=== PATIENT | male | born 2000 | race Caucasian/White ===

== ENCOUNTER 2023-03-13 08:42 | Emergency (ER) | payer OTHER, SELFPAY ==
[2023-03-13 08:43] VITALS: BP 140/96; PULSE 85; RESP 14; TEMP 36.9; O2SAT 100; BMI 19.6
--- NOTE | 2023-03-13 09:56 | RAD_ITS ---
STUDY: X-RAY - LEFT ANKLE REASON FOR EXAM: Male, 22 years old. Left ankle -- -- INJURY LEFT ANKLE, LATERAL PAIN TECHNIQUE: 3 view(s) of the ankle. COMPARISON: None. FINDINGS: Normal visualized distal tibia and fibula. Normal medial and lateral malleoli. Normal tibiotalar articulation and ankle mortise. Normal visualized talus and calcaneus. The visualized subtalar, talonavicular, calcaneocuboid and tarsal articulations are normal. There is no demonstrated fracture. There is lateral soft tissue swelling. RAD/Ankle min 3 Views IMPRESSION: Soft tissue swelling. No fracture seen. Electronically Signed: Bigg Escamilla MD at 10:25 EDT ,
--- NOTE | 2023-03-13 09:57 | EX.ED.DYSGE1 ---
HPI History of Present Illness Chief Complaint: Lower Extremity Injury Narrative Narrative: Patient is a 22-year-old male who is presenting to the ER today with chief complaint of left ankle pain. Patient states that [place] in [place] 1230 [place] and he stepped on a log that gave away and he twisted his left ankle. Patient has not sprained or fractured his left ankle before. Patient was walking around the rest of the day and evening with pain slowly getting worse. Patient took ibuprofen before bedtime last night. Patient woke up and was have a hard time bearing weight on his left ankle. Patient has no other injury. Patient did not injure his head, no headache, neck pain, no other extremity injury besides left ankle. Patient does have moderate amount of swelling with mild ecchymosis noted to the left lateral ankle. Patient was brought to the ER dropped off by a friend. Patient took nothing for pain this morning. He has not used any ice. No other acute complaints. PFS PFSH Allergy/AdvReac Type Severity Reaction Status Date / Time No Known Allergies Allergy Verified 03/13/23 08:44 ROS ROS ED ROS Narrative REVIEW OF SYSTEMS: Unless otherwise stated in this report the patient's positive and negative responses for review of systems for constitutional, eyes, ENT, cardiovascular, respiratory, gastrointestinal, neurological, , musculoskeletal, and integument systems and related systems to the presenting problem are either stated in the history of present illness or were not pertinent or were negative for the symptoms and/or complaints related to the presenting medical problem. EXAM Physical Exam Narrative Exam Narrative: Vital Signs reviewed and noted to be within normal limits. the patient is not hypoxic. General: Alert, no acute distress, patient resting comfortably Skin: warm, intact, no pallor noted Head: Normocephalic, atraumatic Eye: Normal conjunctiva Respiratory: No acute distress Musculoskeletal: No evidence of deformity to the . There is swelling. There is ecchymosis. No erythema is noted. DP and PT pulses are intact 2+. Normal sensation, normal capillary refill less than 2 seconds. There is no cyanosis or mottling noted. The patient has tenderness to lateral malleolus, moderate with moderate swelling, mild ecchymosis. Patient has mild tenderness to palpation to the left medial malleolus, no edema, swelling, ecchymosis. . No tenderness noted to the 5th MT, midfoot, or proximal fibular area. There is no pain with calcaneal squeeze, achilles tendon is intact and no defect is palpated. Left Achilles tendon is intact. No pain to left proximal fibular head. Neurological: alert and orient x4, normal sensory and motor observed. Psychiatric: Cooperative Const Vital Signs: 03/13/23 08:43 Temperature 98.5 F Temperature Source Temporal Pulse Rate 85 Respiratory Rate 14 Blood Pressure 140/96 H Blood Pressure Mean 110 Pulse Ox 100 Oxygen Delivery Method Room Air MDM MDM MDM Narrative Medical decision making narrative: Patient had ice applied, patient was given Motrin, patient had a left ankle x-ray. There is delay in x-ray secondary to not submitting the order by error initially. Patient's left ankle x-ray shows no acute fracture, dislocation, or acute abnormality. This was reviewed by Dr. Blevins. Procedure note: Patient was placed in Chang wrap, Aircast and crutches to the left ankle/lower extremity. Splint was assisted with Dr. Blevins. The patient was neurovascular intact before and after the splint was placed. The affected bones/injured area had proper alignment in a splint. Education on splint care at home was given at bedside. Patient and family had no questions at disposition. Patient's left ankle x-ray shows no acute fracture, dislocation or acute abnormality. Patient had ice and Motrin done in the ER. Patient will continue with ice, anti-inflammatories, and follow-up with PCP. No questions at discharge. Patient is not involved in any type activities or sports. Patient does take HIV medication, no other blood thinners Radiography Diagnostic Testing: Clinical Impression(s) from Imaging Studies Ankle X-Ray 03/13/23 09:56 IMPRESSION: Soft tissue swelling. No fracture seen. Electronically Signed: Bigg Escamilla MD at 10:25 EDT , Discharge Plan Triage Chief Complaint: Lower Extremity Injury ED Provider: Lauro Blevins Dx/Rx/DC Orders Clinical Impression: Acute left ankle pain Instructions: Understanding Ankle Sprain, Treating Ankle Sprains, ED Ankle Sprain (Adult), ED RICE Primary Care Provider: Care Physician,No Primary Referrals: Alessandro Grimaldo MD [Med Staff - Active Staff] - Care Physician,No Primary [Primary Care Provider] - Activity Restrictions/Additional Instructions: Alternate Tylenol Motrin every 4 hours. Use ice 20 minutes on, 20 minutes off. Weightbearing as tolerated on left ankle. Use crutches for the next 3 to 4 days as needed. Eventually remove the crutches, then eventually move the Aircast, and then the Chang wrap. He may have pain for the next 1 to 2 weeks. Follow-up with PCP or orthopedic surgery if no improvement. Disposition Disposition: Home, Self Care
[2023-03-13] MEDS: Ibuprofen 600 MG Tablet PO (10:23)
== END 2023-03-13 11:39 | disposition home or self-care (01) ==
PROVIDERS: Emergency Provider Emergency Medicine; Visit Provider Emergency Medicine
DX: M25.572 Pain in left ankle and joints of left foot (principal); X50.1XXA Overexertion from prolonged static or awkward postures, initial encounter; Y93.89 Activity, other specified; Y92.89 Other specified places as the place of occurrence of the external cause
CPT/HCPCS: 73610; 99284